=== PATIENT | female | born 1955 | race Caucasian/White ===

== ENCOUNTER → 2017-05-19 | Outpatient (CLI) | payer OTHER | LOC: FIMAGING 14:02 | PROVIDERS: ATTEND Family Medicine | DX: N63.20 Unspecified lump in the left breast, unspecified quadrant (principal) ==

== ENCOUNTER 2017-07-20 05:33 | Emergency (ER) | payer OTHER ==
--- NOTE | 2017-07-20 05:50 | EDPHY ---
H & P Stated Complaint: SINUS INFX, CHEST EBEN, CHRISTIANSON X 4 DAYS Time Seen by Provider: 07/20/17 05:50 HPI/ROS: HPI CHIEF COMPLAINT: Anterior maxillary and ethmoid sinus pain, cough, chest congestion, chills and fever HISTORY OF PRESENT ILLNESS: Patient is a 61-year-old female, presents emergency room with anterior sinus congestion and sinus pain. She also describes sinus headache. Reports chills, cough and some intermittent wheezing over the past few days. Denies any chest pain or profound shortness of breath. Denies vomiting or diarrhea. Does complain of a frontal throbbing headache. No meningeal signs. No stiff neck. Does have a productive cough with some yellow sputum. Decided come the emergency room due to the frontal headache. Past Medical History: Denies significant medical history Past Surgical History: Denies significant surgical history Social History: Denies daily use of drugs alcohol tobacco. Family History: Noncontributory ROS REVIEW OF SYSTEMS: A comprehensive 10 point review of systems is otherwise negative aside from elements mentioned in the history of present illness. Exam Constitutional appears nontoxic no acute distress triage nursing summary reviewed, vital signs reviewed, awake/alert. Eyes normal conjunctivae and sclera, EOMI, PERRLA. HENT TMs have fluid behind both TMs, mild erythema, no significant bulge, mild tenderness palpation over the ethmoid sinuses and maxillary sinuses, as well as frontal sinuses, moist mucus membranes, no epistaxis, neck supple/ no meningismus, no raccoon eyes. Respiratory faint wheezing bilaterally but good air movement. Bronchitic sounding cough on exam. Cardiovascular rate normal, regular rhythm, no murmur, no edema, distal pulses normal. Gastrointestinal soft, non-tender, no rebound, no guarding, normal bowel sounds, no distension, no pulsatile mass. Genitourinary no CVA tenderness. Musculoskeletal no midline vertebral tenderness, full range of motion, no calf swelling, no tenderness of extremities, no meningismus, good pulses, neurovascularly intact. Skin pink, warm, & dry, no rash, skin atraumatic. Neurologic awake, alert and oriented x 3, AAOx3, moves all 4 extremities equally, motor intact, sensory intact, CN II-XII intact, normal cerebellar, normal vision, normal speech. Psychiatric normal mood/affect. Heme/Lymph/Immune no lymphadenopathy. Differential Diagnosis: Includes but is not limited to in a particular order viral syndrome, upper respiratory tract infection, acute sinusitis, bronchitis, pneumonia, viral pneumonia, bacterial pneumonia, dehydration, electrolyte abnormality, sepsis Medical Decision Making: Plan for this patient IV establishment blood draw, check basic blood work, CT head to rule out bleed versus sinus disease, chest x- ray Re-evaluation: 0657: Patient re-evaluated this time she is resting comfortably she feels much better after DuoNeb breathing treatment. IV pain medicine IV fluids. Pain is well controlled she is eager to be discharged. Her CT scan shows ethmoid sinusitis, no evidence of acute intracranial bleed. No abscess. Additionally patient x-ray and blood work has been reviewed. Flu is still pending. X-ray the chest reviewed by myself. No evidence of focal pneumonia. Patient is feeling much better. Vital signs are stable. Plan will be for discharge home she is eager to be discharged. Prescription for Augmentin, Mucinex, albuterol inhaler, and Riva for pain and cough suppression. She understands drink lots of fluids. Stay well-hydrated. Take antibiotics as prescribed. Additionally understands return emergency room if she develops any worsening symptoms includes worsening headache, fever, vomiting or worsening symptoms. Source: Patient - Personal History Current Tetanus Diphtheria and Acellular Pertussis (TDAP): Unsure - Medical/Surgical History Hx Asthma: No Hx Chronic Respiratory Disease: No Hx Diabetes: No Hx Cardiac Disease: No Hx Renal Disease: No Hx Cirrhosis: No Hx Alcoholism: No Hx HIV/AIDS: No Hx Splenectomy or Spleen Trauma: No Other PMH: KNEE SCOPED - Social History Smoking Status: Never smoked Constitutional: Initial Vital Signs Temperature (C) 37.3 C 07/20/17 05:38 Heart Rate 87 07/20/17 05:38 Respiratory Rate 16 07/20/17 05:38 Blood Pressure 104/76 07/20/17 05:38 O2 Sat (%) 92 07/20/17 05:38 O2 Delivery Mode Room Air Allergies/Adverse Reactions: erythromycin base Allergy (Verified 05/01/14 13:18) Home Medications: Medication Instructions Recorded Albuterol [Proventil Inhaler HFA 1 - 2 puffs IH Q4H #1 mdi 07/20/17 (*)] Amoxicillin/Clavulanate Pot 875 mg PO BID #14 tab 07/20/17 [Augmentin 875 MG TAB (*)] Anti Depressant 07/20/17 Hydrocodone/APAP 5/325 [Riva 1 - 2 tab PO Q4H PRN #10 tab 07/20/17 5/325] guaiFENesin [Guaifenesin ER] 600 mg PO BID #14 tab.er.12h 07/20/17 predniSONE 60 mg PO DAILY #15 tab 07/20/17 Medical Decision Making - Data Points Laboratory Results: Laboratory Results 07/20/17 06:11 07/20/17 06:11 07/20/17 07/20/17 07/20/17 06:39 06:11 06:11 WBC 3.64 10^3/uL L 10^3/uL (3.80-9.50) RBC 4.30 10^6/uL 10^6/uL (4.18-5.33) Hgb 13.3 g/dL g/dL (12.6-16.3) Hct 38.8 % % (38.0-47.0) MCV 90.2 fL fL (81.5-99.8) MCH 30.9 pg pg (27.9-34.1) MCHC 34.3 g/dL g/dL (32.4-36.7) RDW 12.1 % % (11.5-15.2) Plt Count 188 10^3/uL 10^3/uL (150-400) MPV 9.3 fL fL (8.7-11.7) Neut % (Auto) 63.4 % % (39.3-74.2) Lymph % (Auto) 21.7 % % (15.0-45.0) Swift % (Auto) 12.9 % % (4.5-13.0) Eos % (Auto) 1.4 % % (0.6-7.6) Baso % (Auto) 0.3 % % (0.3-1.7) Nucleat RBC Rel Count 0.0 % % (0.0-0.2) Absolute Neuts (auto) 2.31 10^3/uL 10^3/uL (1.70-6.50) Absolute Lymphs (auto) 0.79 10^3/uL L 10^3/uL (1.00-3.00) Absolute Monos (auto) 0.47 10^3/uL 10^3/uL (0.30-0.80) Absolute Eos (auto) 0.05 10^3/uL 10^3/uL (0.03-0.40) Absolute Basos (auto) 0.01 10^3/uL L 10^3/uL (0.02-0.10) Absolute Nucleated RBC 0.00 10^3/uL 10^3/uL (0-0.01) Immature Gran % 0.3 % % (0.0-1.1) Immature Gran # 0.01 10^3/uL 10^3/uL (0.00-0.10) Sodium 139 mEq/L mEq/L (135-145) Potassium 4.2 mEq/L mEq/L (3.5-5.2) Chloride 103 mEq/L mEq/L (97-110) Carbon Dioxide 22 mEq/l mEq/l (22-31) Anion Gap 14 mEq/L mEq/L (8-16) BUN 11 mg/dL mg/dL (7-23) Creatinine 0.8 mg/dL mg/dL (0.6-1.0) Estimated GFR > 60 Glucose 115 mg/dL H mg/dL (70-100) Calcium 8.8 mg/dL mg/dL (8.5-10.4) Total Bilirubin 0.5 mg/dL mg/dL (0.1-1.4) Conjugated Bilirubin 0.3 mg/dL mg/dL (0.0-0.5) Unconjugated Bilirubin 0.2 mg/dL mg/dL (0.0-1.1) AST 42 IU/L IU/L (14-46) ALT 71 IU/L H IU/L (9-52) Alkaline Phosphatase 100 IU/L IU/L (38-126) Total Protein 6.8 g/dL g/dL (6.3-8.2) Albumin 3.9 g/dL g/dL (3.5-5.0) Nasal Influenza A PCR Pending Nasal Influenza B PCR Pending Medications Given: Discontinued Medications Albuterol/Ipratropium (Duoneb) 3 ml IH EDNOW ONE Stop: 07/20/17 06:00 Last Admin: 07/20/17 06:37 Dose: 3 ml Amoxicillin/Clavulanate Potassium (Augmentin 875mg) 875 mg PO EDNOW ONE PRN Reason: Protocol Stop: 07/20/17 06:29 Last Admin: 07/20/17 06:37 Dose: 875 mg Hydromorphone HCl (Dilaudid) 0.5 mg IVP EDNOW ONE Stop: 07/20/17 05:59 Last Admin: 07/20/17 06:37 Dose: 0.5 mg Sodium Chloride (Ns) 1,000 mls @ 0 mls/hr IV EDNOW ONE; Wide Open PRN Reason: Protocol Stop: 07/20/17 05:59 Last Admin: 07/20/17 06:09 Dose: 1,000 mls Sodium Chloride (Ns) 1,000 mls @ 0 mls/hr IV EDNOW ONE; Wide Open PRN Reason: Protocol Stop: 07/20/17 05:59 Last Admin: 07/20/17 06:10 Dose: 1,000 mls Ondansetron HCl (Zofran) 4 mg IVP EDNOW ONE Stop: 07/20/17 05:59 Last Admin: 07/20/17 06:37 Dose: 4 mg Departure - Departure Disposition: Home, Routine, Self-Care Clinical Impression: Sinus headache Sinusitis Qualifiers: Sinusitis location: ethmoidal Chronicity: acute Recurrence: non-recurrent Qualified Code(s): J01.20 - Acute ethmoidal sinusitis, unspecified Condition: Good Instructions: Sinusitis (ED) Additional Instructions: 1. Drink lots of fluids stay well-hydrated. 2. Antibiotics as prescribed. 3. Return emergency room if you have worsening symptoms includes worsening headache, fever, vomiting Referrals: Kristin Graham MD [Primary Care Provider] - As per Instructions Prescriptions: Albuterol [Proventil Inhaler HFA (*)] 1 - 2 puffs IH Q4H #1 mdi Amoxicillin/Clavulanate Pot [Augmentin 875 MG TAB (*)] 875 mg PO BID #14 tab guaiFENesin [Guaifenesin ER] 600 mg PO BID #14 tab.er.12h Hydrocodone/APAP 5/325 [Riva 5/325] 1 - 2 tab PO Q4H PRN #10 tab PRN Reason: Pain, Moderate predniSONE 60 mg PO DAILY #15 tab
[2017-07-20] MEDS ORDERED: HYDROmorphONE/DILAUDID 2 MG/ML INJ IVP ONE (05:58)
[2017-07-20] MEDS ORDERED: ONDANSETRON 4 MG/2 ML VIAL IVP ONE (05:58)
[2017-07-20] MEDS ORDERED: NS 1,000 ML IV ONE ×2 (05:58)
[2017-07-20] MEDS ORDERED: IPRATROPIUM/ALBUTEROL 3 ML DEYVIAL IH ONE (05:59)
[2017-07-20 06:20] LABS: PLATELET COUNT 188 10^3/uL (150-400)
[2017-07-20] MEDS ORDERED: AMOXICILLIN/CLAVULANATE POT 875/125 MG TAB PO ONE (06:28)
[2017-07-20] MEDS ORDERED: predniSONE 20 MG TAB PO ONE (06:31)
[2017-07-20 07:26] VITALS: BP 100/54
== END 2017-07-20 07:24 | disposition home or self-care (01) ==
DX: J01.20 Acute ethmoidal sinusitis, unspecified (principal); E86.9 Volume depletion, unspecified
CPT/HCPCS: 96374; J1170; J2405; J7512

== ENCOUNTER → 2018-08-03 | Outpatient (CLI) | payer OTHER | LOC: FIMAGING 08:50 | PROVIDERS: ATTEND Family Medicine | DX: R74.8 Abnormal levels of other serum enzymes (principal); K21.9 Gastro-esophageal reflux disease without esophagitis ==